=== PATIENT | male | born 1955 | race Caucasian/White ===

== ENCOUNTER 2019-11-27 12:56 | Day surgery (SDC) | payer MEDICARE, OTHER ==
[~2019-11-27 12:56] MED LIST: Lactated Ringers 1,000 ML IV SCH; Sodium Chloride 0.9% 10 ML SDV IV PRN; Sodium Chloride 0.9% 10 ML Syringe FLUSH PRN; Sodium Chloride 0.9% 2.5 ML Syringe FLUSH PRN
--- NOTE | 2019-11-27 14:13 | PCM.PREANE ---
Preanesthetic Assessment - Anesthesia/Transfusion/Family Hx Anesthesia History: Prior Anesthesia Without Reaction Other Type of Anesthesia Reaction Comment: denies any known problem with anesthesia in the past Family History of Anesthesia Reaction: No Transfusion History: No Prior Transfusion(s) Intubation History: Unknown - Review of Systems General: No Symptoms Pulmonary: No Symptoms Cardiovascular: No Symptoms Gastrointestinal: No Symptoms, Other (screening, colonoscopy 10 years ago was normal) Neurological: No Symptoms Other: Reports: None - Physical Assessment NPO Status Date: 11/27/19 NPO Status Time: 09:30 Vital Signs: Last Vital Signs Temp 36.7 C 11/27/19 13:38 Pulse 72 11/27/19 13:38 Resp 18 11/27/19 13:38 BP 147/97 H 11/27/19 13:38 Pulse Ox 96 11/27/19 13:38 Height: 6 ft Weight: 105.687 kg ASA Class: 2 Mental Status: Alert & Oriented x3 Airway Class: Mallampati = 2 Dentition: Reports: Normal Dentition (front upper teeth knocked out 6 weeks ago , placed back by the dentist with hope to regrow back) Thyro-Mental Finger Breadths: 3 Mouth Opening Finger Breadths: 3 ROM/Head Extension: Limited/Partial Lungs: Clear to Auscultation, Normal Respiratory Effort Cardiovascular: Regular Rate, Regular Rhythm - Allergies Allergies/Adverse Reactions: Allergies Allergy/AdvReac Type Severity Reaction Status Date / Time No Known Allergies Allergy Verified 11/23/19 06:54 - Blood Blood Available: No - Anesthesia Plan Pre-Op Medication Ordered: None - Acknowledgements Anesthesia Type Planned: MAC Pt an Appropriate Candidate for the Planned Anesthesia: Yes Alternatives and Risks of Anesthesia Discussed w Pt/Guardian: Yes Pt/Guardian Understands and Agrees with Anesthesia Plan: Yes PreAnesthesia Questionnaire HEENT History: Reports: Hard of Hearing, Other (See Below) Other HEENT History: arleen hearing aids Cardiovascular History: Reports: None, Other (See Below) (borderline cholesterol 203) Respiratory History: Reports: None Gastrointestinal History: Reports: GERD Genitourinary History: Reports: None Musculoskeletal History: Reports: Osteoarthritis Neurological History: Reports: None Psychiatric History: Reports: ADD Endocrine/Metabolic History: Reports: Obesity/BMI 30+ (BMI 31.6), Other (See Below) (h/o prediabetes, not since losing weight) Hematologic History: Reports: None Immunologic History: Reports: None Oncologic (Cancer) History: Reports: None Dermatologic History: Reports: None - Past Surgical History Head Surgeries/Procedures: Reports: None HEENT Surgical History: Reports: LASIK Cardiovascular Surgical History: Reports: None Respiratory Surgical History: Reports: None GI Surgical History: Reports: Colonoscopy (10 years ago), Hernia, Inguinal Male Surgical History: Reports: Vasectomy Endocrine Surgical History: Reports: None Neurological Surgical History: Reports: None Musculoskeletal Surgical History: Reports: Hip Replacement Other Musculoskeletal Surgeries/Procedures:: arleen hip replacements, second one Oncologic Surgical History: Reports: None Dermatological Surgical History: Reports: None - SUBSTANCE USE Smoking Status *Q: Never Smoker - HOME MEDS Home Medications: Home Meds Diclofenac Sodium/Misoprostol [Arthrotec 50 mg-200 Mcg Tab] 1 tab PO DAILY PRN 02/13/14 [History] Albuterol Sulfate [Proair Hfa] 1 - 2 puff INH Q4H PRN 11/01/19 [History] Cholecalciferol (Vitamin D3) [Vitamin D3] 1,000 units PO DAILY 11/01/19 [History ] Krill/Om-3/DHA/EPA/Phospho/Ast [Krill Oil 1,000 mg Softgel] 1 tab PO DAILY 11/01 [History] Omeprazole Magnesium [Prilosec Otc] 20 mg PO DAILY PRN 11/01/19 [History] Methylphenidate HCl [Methylphenidate ER] 1 - 2 tab PO DAILY 11/23/19 [History] - CURRENT (IN HOUSE) MEDS Current Meds: Current Medications Lactated Ringer's (Ringers, Lactated) 1,000 mls @ 125 mls/hr IV ASDIRECTED DONIS Last Admin: 11/27/19 13:38 Dose: 125 mls/hr Sodium Chloride (Saline Flush) 10 ml FLUSH ASDIRECTED PRN PRN Reason: Keep Vein Open Sodium Chloride (Saline Flush) 2.5 ml FLUSH ASDIRECTED PRN PRN Reason: Keep Vein Open Sodium Chloride (Saline Flush) 10 ml FLUSH ASDIRECTED PRN PRN Reason: Keep Vein Open Sodium Chloride (Saline Flush) 2.5 ml FLUSH ASDIRECTED PRN PRN Reason: Keep Vein Open Sodium Chloride (Normal Saline) 10 ml IV ASDIRECTED PRN PRN Reason: IV Use
[2019-11-27] MEDS ORDERED: fentaNYL 100 MCG/2 ML SDV ONE (14:14)
[2019-11-27] MEDS ORDERED: Midazolam 1 MG/ML 2 ML SDV ONE (14:14)
[2019-11-27] MEDS ORDERED: Propofol 200 MG/20 ML SDV ONE ×2 (14:14)
--- NOTE | 2019-11-27 16:04 | PCM.POSTAN ---
POST ANESTHESIA ASSESSMENT - MENTAL STATUS Mental Status: Alert, Oriented - VITAL SIGNS Vital Signs: Last Vital Signs Temp 36.7 C 11/27/19 13:38 Pulse 66 11/27/19 16:00 Resp 10 L 11/27/19 16:00 BP 114/66 11/27/19 16:00 Pulse Ox 96 11/27/19 16:00 - RESPIRATORY Respiratory Status: Respiratory Rate WNL, Airway Patent, O2 Saturation Stable - CARDIOVASCULAR CV Status: Pulse Rate WNL, Blood Pressure Stable - GASTROINTESTINAL GI Status: No Symptoms - POST OP HYDRATION Hydration Status: Adequate & Stable - OBSERVATIONS Free Text/Narrative:: The patient tolerated the procedure well. There were no apparent anesthetic complications at this time. Discharge to phase 2 per criteria.
--- NOTE | 2019-11-27 16:04 | PCM.OPNOTE ---
- General Post-Op/Procedure Note Date of Surgery/Procedure: 11/27/19 Operative Procedure(s): Screening colonoscopy Findings: Sigmoid colon polyp, transverse, cecal, rectal. Diverticulosis Pre Op Diagnosis: screening colonoscopy Post-Op Diagnosis: Cecal polyp x 3, transverse colon polyp, sigmoid colon polyp , rectal polyp, diverticulosis Anesthesia Technique: [facility] [place] Surgeon: Sonya Mcclendon Condition: Good
--- NOTE | 2019-11-27 16:24 | PCM48HPAN ---
Post Anesthesia Note - EVALUATION WITHIN 48HRS OF ANESTHETIC Vital Signs in Normal Range: Yes Patient Participated in Evaluation: Yes Respiratory Function Stable: Yes Airway Patent: Yes Cardiovascular Function Stable: Yes Hydration Status Stable: Yes Pain Control Satisfactory: Yes Nausea and Vomiting Control Satisfactory: Yes Mental Status Recovered: Yes Vital Signs: Last Vital Signs Temp 36.9 C 11/27/19 16:08 Pulse 61 11/27/19 16:08 Resp 14 11/27/19 16:08 BP 108/80 11/27/19 16:08 Pulse Ox 95 11/27/19 16:08 - COMMENTS/OBSERVATIONS Free Text/Narrative:: The patient has no complaints at this time. Discharge home per criteria.
--- NOTE | 2019-11-28 13:23 | OR ---
SURGEON: SONYA MCCLENDON MD DATE OF PROCEDURE: 11/27/2019 PREOPERATIVE DIAGNOSIS: Screening colonoscopy. POSTOPERATIVE DIAGNOSES: 1. Cecal polyps x3. 2. Transverse colon polyp x1. 3. Sigmoid colon polyp x1. 4. Rectal polyp x1. 5. Diverticulosis. PROCEDURE PERFORMED: Screening colonoscopy with polypectomy. PRIMARY SURGEON: Sonya Mcclendon MD. ANESTHESIA: MAC. INSTRUMENT USED: Olympus colonoscope. EXTENT OF EXAM: To the cecum. PREPARATION: Good. LIMITATIONS: None. INDICATIONS FOR EXAMINATION: The patient is a 64-year-old male who presents for screening colonoscopy. He had one 10 years ago which was normal. The patient and I discussed the need for a followup colonoscopy. I explained the procedure, expected perioperative course, and risks. The patient verbalized understanding and wishes to proceed. PROCEDURE IN DETAIL: The patient was brought into the endoscopy suite and placed in the left lateral decubitus position. A time-out was completed verifying the patient's name, age, date of , allergies, and procedure to be performed. Monitored anesthesia care was induced and continuous oxygen was provided via nasal cannula throughout the procedure. After adequate sedation was achieved, a digital rectal exam was performed. This exam was within normal limits. A well-lubricated colonoscope was inserted in the rectum and advanced under direct visualization to the level of the cecum. The cecum was identified by both visual and anatomic landmarks. A photograph was taken of the cecal cap as well as with the scope retroflexed within the cecum. The scope was then fully withdrawn while examining the color, texture, anatomy, and integrity of the mucosa from the cecum to the anal canal. The patient was found to have two polyps within the cecal cap itself. These were removed in piecemeal fashion using cold biopsy forceps. A third cecal polyp was identified upon retroflexion. This was removed in similar fashion. The patient was also found to have small sessile polyps within the transverse colon, sigmoid colon, and in the rectum. All were removed in piecemeal fashion using cold biopsy forceps. The patient also was noted to have diverticulosis throughout the sigmoid colon. The scope was retroflexed within the rectum to allow visualization of the anal canal opening. This appeared normal and a photograph was taken. The scope was then straightened out and fully withdrawn. The cecum to anus time was 30 minutes. The patient tolerated the procedure well and was transferred to the PACU in stable condition. ENDOSCOPIC DIAGNOSES: 1. Cecal polyps x3. 2. Transverse colon polyp x1. 3. Sigmoid colon polyp x1. 4. Rectal polyp x1. 5. Diverticulosis. RECOMMENDATIONS: Follow up in clinic in 2 weeks. MAYITO EVANS /[id number]
== END 2019-11-27 16:08 | disposition home or self-care (01) ==
LOC: MW.SDS 12:56
PROVIDERS: ATTEND Surgery
DX: Z12.11 Encounter for screening for malignant neoplasm of colon (principal); D12.0 Benign neoplasm of cecum; D12.5 Benign neoplasm of sigmoid colon; K62.1 Rectal polyp; K57.30 Diverticulosis of large intestine without perforation or abscess without bleeding; I10 Essential (primary) hypertension; K21.9 Gastro-esophageal reflux disease without esophagitis; F90.9 Attention-deficit hyperactivity disorder, unspecified type; E66.9 Obesity, unspecified; Z79.899 Other long term (current) drug therapy; Z68.31 Body mass index [BMI] 31.0-31.9, adult; Z98.890 Other specified postprocedural states
CPT/HCPCS: 45380; J2001; J2250; J2704; J3010; J7120; 88305

== ENCOUNTER 2023-02-15 09:52 | Day surgery (SDC) | payer MEDICARE, OTHER ==
[~2023-02-15 09:52] MED LIST changes: -Lactated Ringers 1,000 ML IV SCH; -Sodium Chloride 0.9% 10 ML SDV IV PRN; +Sodium Chloride 0.9% 20 ML SDV IV PRN
[2023-02-15] MEDS ORDERED: Propofol 200 MG/20 ML SDV ONE (10:45)
[2023-02-15] MEDS ORDERED: Ketamine 500 mg/10 ML MDV ONE (11:00)
[2023-02-15] MEDS ORDERED: propofoL 50 ML ONE (11:00)
[2023-02-15] MEDS ORDERED: Ondansetron 4 MG/2 ML SDV ONE (11:00)
[2023-02-15] MEDS ORDERED: Lidocaine 2% 5 ML SDV ONE (11:14)
[2023-02-15] MEDS ORDERED: Glycopyrrolate 0.2 MG/ML SDV ONE (11:19)
[2023-02-15] MEDS ORDERED: Magnesium Sulfate (4.06 MEQ/ML) 5 GM/10 ML SDV ONE (11:19)
[2023-02-15] MEDS: Lactated Ringers 1,000 ML IV SCH ×2 (12:00→14:13)
== END 2023-02-15 12:20 | disposition home or self-care (01) ==
LOC: MW.SDS 09:52
PROVIDERS: ATTEND Surgery
DX: Z12.11 Encounter for screening for malignant neoplasm of colon (principal); D12.4 Benign neoplasm of descending colon; K63.5 Polyp of colon; K57.30 Diverticulosis of large intestine without perforation or abscess without bleeding; K31.7 Polyp of stomach and duodenum; K31.89 Other diseases of stomach and duodenum; K44.9 Diaphragmatic hernia without obstruction or gangrene; K29.80 Duodenitis without bleeding; K21.9 Gastro-esophageal reflux disease without esophagitis; E66.9 Obesity, unspecified; F98.8 Other specified behavioral and emotional disorders with onset usually occurring in childhood and adolescence; I10 Essential (primary) hypertension; R73.9 Hyperglycemia, unspecified; E78.1 Pure hyperglyceridemia; J20.9 Acute bronchitis, unspecified; E78.00 Pure hypercholesterolemia, unspecified; M19.90 Unspecified osteoarthritis, unspecified site; Z20.822 Contact with and (suspected) exposure to COVID-19; Z88.0 Allergy status to penicillin; Z96.649 Presence of unspecified artificial hip joint; Z68.32 Body mass index [BMI] 32.0-32.9, adult
CPT/HCPCS: 43239; 45380; J0131; J2405; J2704; J3475; J3490; J7120